=== PATIENT | male | born 1965 | race Caucasian/White ===

== ENCOUNTER 2018-01-21 11:42 | Emergency (ER) | payer OTHER ==
[~2018-01-21] VITALS: Ht 193 cm; Wt 230.0 kg
[~2018-01-21 11:42] MED LIST: VERAPAMIL HCL40 MG; ZESTRIL10 MG
[2018-01-21] MEDS ORDERED: PLAVIX75 MG (12:24)
[2018-01-21] MEDS ORDERED: METFORMIN HCL850 MG PO (12:24)
[2018-01-21] MEDS ORDERED: GLIPIZIDE ER10 MG (12:24)
[2018-01-21] MEDS ORDERED: WARFARIN PO ×2 (12:25→12:26)
[2018-01-21] MEDS ORDERED: NORVASC5 MG (12:26)
[2018-01-21] MEDS ORDERED: ZANTAC150 M3 PO (12:26)
[2018-01-21] MEDS ORDERED: METOPROLOL SUCC50 MG (12:27)
== END 2018-01-21 18:14 | disposition home or self-care (01) ==
LOC: ER 11:42
DX: R05 Cough (principal); R06.02 Shortness of breath

== ENCOUNTER 2018-05-06 19:57 | Emergency (ER) | payer OTHER ==
[~2018-05-06] VITALS: Ht 193 cm; Wt 234.1 kg
[~2018-05-06 19:57] MED LIST changes: +GLIPIZIDE ER10 MG; +METFORMIN HCL850 MG PO; +METOPROLOL SUCC50 MG; +NORVASC5 MG; +PLAVIX75 MG; +WARFARIN PO; +ZANTAC150 M3 PO
[2018-05-06] MEDS ORDERED: COZAAR100 MG (21:06)
[2018-05-06] MEDS ORDERED: LANOXIN62.5 MCG (21:06)
[2018-05-06] MEDS ORDERED: COUMADIN10 MG (21:07)
[2018-05-06] MEDS ORDERED: DEMADEX10 MG (21:07)
[2018-05-06] MEDS ORDERED: ALDACTONE25 MG (21:08)
[2018-05-06] MEDS ORDERED: [UNRECOGNIZED DRUG - OTHER] (21:09)
== END 2018-05-07 00:03 | disposition home or self-care (01) ==
LOC: ER 19:57
DX: R60.0 Localized edema (principal); I16.0 Hypertensive urgency; I10 Essential (primary) hypertension